=== PATIENT | female | born 1955 | race African-American/Black ===

== ENCOUNTER 2018-04-28 08:55 | Emergency (ER) | payer OTHER ==
[~2018-04-28] VITALS: Ht 167.6 cm; Wt 65.0 kg
[2018-04-28] MEDS ORDERED: TETANUS, DIPHTHERIA, PERTUSSIS VAC/PF 0.5ML (>7YR OLD) IM ONE (09:45)
[2018-04-28] MEDS ORDERED: BACITRACIN ZINC OINT UDPKT TOP ONE (09:45)
[2018-04-28] MEDS ORDERED: LIDOCAINE HCL/PF 1% 10 MG/ML 5ML VIAL IJ ONE (09:45)
[2018-04-28] MEDS ORDERED: ACETAMINOPHEN 325MG TABLET PO ONE (11:00)
[2018-04-28 12:24] VITALS: BP 143/84
== END 2018-04-28 12:25 | disposition home or self-care (01) ==
LOC: ER 09:26
DX: S61.412A Laceration without foreign body of left hand, initial encounter (principal); R51 Headache; R11.10 Vomiting, unspecified; I10 Essential (primary) hypertension; F17.200 Nicotine dependence, unspecified, uncomplicated; W18.39XA Other fall on same level, initial encounter; Y93.89 Activity, other specified; Y92.89 Other specified places as the place of occurrence of the external cause; Y99.8 Other external cause status; Z98.51 Tubal ligation status; Z88.2 Allergy status to sulfonamides
CPT/HCPCS: 12002; 70450; 71045; 72125; 72170; 73130; 90471; 90715; 99284; J3490; X7700; Z7610